=== PATIENT | male | born 1965 | race Caucasian/White ===

== ENCOUNTER → 2020-04-07 08:46 | Outpatient (CLI) | payer BC, OTHER, SELFPAY ==
--- NOTE | 2020-04-07 | DI.RAD.S_ITS ---
PROCEDURE: FL SMALL BOWEL FOLLOW THROUGH INDICATIONS: Other specified personal risk factors, not elsewhe COMPARISON: None. 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 No suspicious abdominal calcifications. Visualized solid organ contours appear normal. No suspicious bony abnormalities. Cholecystectomy clips are noted. Small bowel: There is normal transit time of barium through the small bowel. Small bowel loops are of normal caliber throughout. Mucosal folds are smooth and of normal thickness. No strictures, intraluminal masses, or extrinsic mass effects are noted. The terminal ileum is identified, and is normal in morphology. IMPRESSION: Normal small bowel follow-through. Dictated by: Sheryl Ramos M.D. on 04/07/2020 at 12:02 Approved by: Sheryl Ramos M.D. on 04/07/2020 at 12:03
== END ==
PROVIDERS: PCP Family Medicine; Referring Provider Family Medicine; Visit Provider Family Medicine
DX: E11.9 Type 2 diabetes mellitus without complications (principal); K22.4 Dyskinesia of esophagus; K21.9 Gastro-esophageal reflux disease without esophagitis; K44.9 Diaphragmatic hernia without obstruction or gangrene; Z91.89 Other specified personal risk factors, not elsewhere classified
CPT/HCPCS: 74246; 74248